=== PATIENT | female | born 1990 | race Caucasian/White ===

== ENCOUNTER → 2024-01-09 | Outpatient (CLI) | payer MEDICAID, SELFPAY ==
--- NOTE | 2024-01-09 12:24 | US_ITS ---
INDICATION: ABNORMAL EXAM, HYPERCALCEMIA EXAMINATION: Ultrasound US Thyroid (eg thyroid, parathyroid, parotid) TECHNIQUE: Stephenson scale and color doppler imaging was performed of the thyroid gland. COMPARISON: No relevant prior comparison study available FINDINGS: RIGHT THYROID LOBE: 5.2 x 1.5 x 1.7 cm. The right lobe is diffusely heterogenous. [There is a minimally complex 0.4 x 0.2 x 0.4 cm nodule within the right lobe that contains no significant internal vascularity nor microcalcifications. LEFT THYROID LOBE: 5.2 x 1.4 x 1.9 cm. The gland is diffusely heterogenous. [No thyroid nodules are present. ISTHMUS: 0.27 cm. No thyroid nodules are present. US/Thyroid IMPRESSION: Enlarged and heterogenous thyroid gland, may reflect a history of thyroiditis. 0.4 x 0.2 x 0.4 cm mildly complex nodule within the right lobe, TR 2. Electronically Signed: Franny Marks MD at 14:19 EDT ,
== END | disposition home or self-care (01) ==
LOC: US 12:22
PROVIDERS: Referring Provider Internal Medicine Endocrinology, Diabetes & Metabolism; Visit Provider Internal Medicine Endocrinology, Diabetes & Metabolism
DX: Z39.2 Encounter for routine postpartum follow-up (principal); E83.52 Hypercalcemia
CPT/HCPCS: 76536

== ENCOUNTER → 2024-02-10 | Outpatient (CLI) | payer MEDICAID, SELFPAY ==
--- NOTE | 2024-02-10 09:49 | NM_ITS ---
CLINICAL: 33-year-old female with history of clinical hyperparathyroidism. 99m Tc SESTAMIBI DUAL PHASE PARATHYROID SCINTIGRAPHY COMPARISON: Thyroid ultrasound report 01/09/2024 FINDINGS: Following the intravenous administration of 26.3 mCi of 99m Tc sestamibi, image acquisitions of the anterior neck at 15 minutes and 3.0 hours post radiopharmaceutical provision reveal: 1. Immediate static blood pool acquisitions demonstrate distribution of the radiotracer in the left and right thyroid colloid. 2. Delayed images depict persistent relatively unchanged visualization of the left and right thyroid colloid. NM/Parathyroid Scan IMPRESSION: 1. Incomplete-delayed washout of the radiopharmaceutical from the entire functioning thyroid colloid may be secondary to multinodular goiter, chronic lymphocytic thyroiditis. ([place], Radiographics 19: 601, 1999). Electronically Signed: Peter Teixeira DO at 22:33 EST ,
== END | disposition home or self-care (01) ==
LOC: NM 09:47
PROVIDERS: Referring Provider Internal Medicine Endocrinology, Diabetes & Metabolism; Visit Provider Internal Medicine Endocrinology, Diabetes & Metabolism
DX: Z39.2 Encounter for routine postpartum follow-up (principal); E83.52 Hypercalcemia
CPT/HCPCS: 78070; A9500